=== PATIENT | female | born 1990 | race Caucasian/White ===

== ENCOUNTER 2016-11-09 12:07 | Emergency (ER) | payer OTHER ==
[~2016-11-09] VITALS: Ht 152.4 cm; Wt 39.5 kg
[2016-11-09 12:39] VITALS: BP 132/76
--- NOTE | 2016-11-09 14:10 | NUR ---
PTPT PRESENTS TO ER W/C/O BLOOD IN STOOL X1 THIS. PT DENIES ANY MEDICAL HX. DENIES N/V/D; SKIN IS PINK/WARM/DRY; AAOX4 WITH EVEN AND STEADY GAIT; LUNGS CLEAR BL; HR EVEN AND REGULAR; PT DENIES ANY FEVER, CP, SOB, OR COUGH AT THIS TIME; PATIENT STATES PAIN OF 5/10 AT THIS TIME; VSS; PATIENT POSITIONED FOR COMFORT; HOB ELEVATED; BEDRAILS UP X2; BED DOWN. ER MD MADE AWARE OF PT STATUS.
[2016-11-09 14:59] LABS: BASOPHILS # (AUTO) 0.4 K/uL (0.00-0.22); HEMOGLOBIN 14.2 g/dL (12.0-16.0); LYMPHOCYTES # (AUTO) 1.7 K/uL (2.5-16.5); MEAN CORPUSCULAR HEMOGLOBIN 31 pg (27-31); MEAN CORPUSCULAR HGB CONC 34 g/dL (33-37); MEAN CORPUSCULAR VOLUME 93 fL (80-94); MONOCYTES # (AUTO) 0.6 K/uL (0.8-1.0); NEUTROPHILS # (AUTO) 3.2 K/uL (1.8-7.7); PLATELET COUNT (AUTO) 242 K/uL (140-450); RED BLOOD CELL COUNT(AUTO) 4.51 MIL/uL (4.20-5.40); RED CELL DISTRIBUTION WIDTH 11.7 % (11.6-13.7); WHITE BLOOD COUNT (AUTO) 5.9 K/uL (4.8-10.8)
[2016-11-09 15:04] LABS: APPEARANCE,URINE HAZY (CLEAR); BILIRUBIN,URINE NEGATIVE (NEGATIVE); BLOOD, URINE NEGATIVE (NEGATIVE); COLOR,URINE YELLOW (YELLOW); LEUKOCYTE ESTERASE ,URINE TRACE (NEGATIVE); NITRITE, URINE NEGATIVE (NEGATIVE); PH,URINE 5.5 (5.0-9.0); UGLUCOSE NEGATIVE (NEGATIVE)
[2016-11-09 15:11] LABS: RBC,URINE 0-5 (RARE) /HPF (0-5); WBC,URINE 0-5 (RARE) /HPF (0-5)
[2016-11-09 15:13] LABS: ANION GAP 13.4 (8-16); CARBON DIOXIDE 26.8 mmol/L (21-32); CREATININE 0.8 mg/dL (0.6-1.3); POTASSIUM 4.2 mmol/L (3.5-5.1)
[2016-11-09 15:19] LABS: ALBUMIN 4.6 g/dL (3.4-5.0); TOTAL BILIRUBIN 2.3 mg/dL (0.0-1.0)
[2016-11-09 15:48] VITALS: BP 120/80
--- NOTE | 2016-11-09 15:48 | NUR ---
Patient discharged with v/s stable. Written and verbal after care instructions given and explained. Patient verbalized understanding. Ambulatory with steady gait. All questions addressed prior to discharge. Advised to follow up with PMD.
== END 2016-11-09 15:48 | disposition home or self-care (01) ==
LOC: MED 12:07
DX: K62.5 Hemorrhage of anus and rectum (principal); R03.0 Elevated blood-pressure reading, without diagnosis of hypertension
CPT/HCPCS: 36415; 80053; 81001; 83690; 84703; 85025; 86886; 86900; 86901; 87086; 99284

== ENCOUNTER 2017-05-15 21:12 | Emergency (ER) | payer OTHER ==
[~2017-05-15] VITALS: Ht 152.4 cm; Wt 42.6 kg
[2017-05-15 21:18] VITALS: BP 139/90
--- NOTE | 2017-05-15 21:22 | NUR ---
TO LOBBY, A/W BED AND FOR XRAY, ELI DAVEY , ERMD NOTED
--- NOTE | 2017-05-15 21:29 | NUR ---
PT.AMBULATED TO [facility]
--- NOTE | 2017-05-15 21:41 | NUR ---
PT TAKEN TO RAD
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
--- NOTE | 2017-05-15 22:22 | NUR ---
Dr. Dove evaluating patient.
[2017-05-15 23:18] VITALS: BP 113/71
== END 2017-05-15 23:00 | disposition home or self-care (01) ==
LOC: MED 21:12
DX: R07.89 Other chest pain (principal)
CPT/HCPCS: 71045; 93005; 99284

== ENCOUNTER 2020-01-26 17:20 | Emergency (ER) | payer OTHER ==
[~2020-01-26] VITALS: Ht 152.4 cm; Wt 39.5 kg
[2020-01-26 17:31] VITALS: BP 138/96
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
[2020-01-26] MEDS ORDERED: ONDANSETRON 4 MG ODT PO ONE (17:45)
[2020-01-26] MEDS ORDERED: HYDROcodone/APAP 5/325 MG 1 TAB TAB PO ONE (17:45)
[2020-01-26 19:02] VITALS: BP 125/91
--- NOTE | 2020-01-26 19:02 | NUR ---
Patient discharged with v/s stable. Written and verbal after care instructions given and explained. Patient alert, oriented and verbalized understanding of instructions. Ambulatory with steady gait. All questions addressed prior to discharge. ID band removed. Patient advised to follow up with PMD. Rx of Flexeril, Ibuprofen, and Voltaren given. Patient educated on indication of medication including possible reaction and side effects. Opportunity to ask questions provided and answered.
== END 2020-01-26 19:02 | disposition home or self-care (01) ==
LOC: MED 17:20
DX: S16.1XXA Strain of muscle, fascia and tendon at neck level, initial encounter (principal); R51.9 Headache, unspecified; X58.XXXA Exposure to other specified factors, initial encounter; Y93.89 Activity, other specified; Y92.89 Other specified places as the place of occurrence of the external cause; Y99.8 Other external cause status
CPT/HCPCS: 72040; 81025; 99283; Q0162